=== PATIENT | female | born 1960 | race Caucasian/White ===

== ENCOUNTER 2018-02-23 19:50 | Emergency (ER) | payer BC ==
[~2018-02-23] VITALS: Ht 165.1 cm; Wt 53.0 kg
[~2018-02-23 19:50] MED LIST: ZITH250T PO
[2018-02-23 19:54] VITALS: BP 117/71; PULSE 80; RESP 16; TEMP 97.9; O2SAT 99
[2018-02-23 20:20] VITALS: O2SAT 100
--- NOTE | 2018-02-23 20:28 | PD ---
HPI Chief Complaint: GI Complaint Time Seen by Provider: 20:07 Travel History International Travel<30 days: No Contact w/Intl Traveler<30days: No Traveled to known affect area: No History of Present Illness HPI The patient is a 57 year old female who presents to the [facility] emergency department with a history of reportedly not feeling well for the last 3 months. She reports having loss of appetite with persistent nausea. She denies having any vomiting. She reports that she has lost 20 pounds in the last 3 months. She reports that she has a generalized abdominal pain whenever she eats. She reports that the pain is an aching sensation. She reports that the symptoms seem to be getting worse over time. She reports that she has had a colonoscopy in the past approximately 3 years ago when she was diagnosed with colitis. The patient reports that she does not have a primary care physician currently, however she recently started a new job and has acquired insurance recently and she is in the process of finding a new primary care doctor. The patient has a history of hypothyroid disorder, however she has not been on any medication for this due to her lack of primary care physician and prior lack of insurance. She reports that she takes [id number] iodine pills for her thyroid and biotin. She denies having any diarrhea. She reports that she has a history of constipation and normally moves her bowels every 2-3 days. She denies having any blood in her stool or black or tarry stools. The patient reports that she has had increasing problems with depression and anxiety over the last 3 months. She reports that it became worse when she started her new job. She reports that she has been having difficulty with 2 coworkers. The patient reports a prior history of depression and anxiety and had been on medication in the past for this. The patient reports that over the last 6 weeks she has had urinary frequency with a strong odor to her urine. She reports that she was taking Azo and cranberry juice for this. The symptoms seemed to improve and then got worse again. The patient denies having any known recent fevers, cough or congestion, neck pain, chest pain, shortness of breath, or neurologic symptoms. [facility] Past Medical History Narrative Medical The patient's past medical history is significant for anxiety and depression, history of colitis 3 years ago, prior history of cocaine use for which she has been clean and sober for the last 5 years, history of alcohol abuse for which she has been clean and sober for the last 5 months, and hypothyroid disorder. The patient denies any prior history of cirrhosis or hepatitis. She denies any prior history of IV drug use. Asthma: Yes Depression: Yes Diabetes: No Diminished Hearing: No Headaches: Yes Kidney Stones: Yes Musculoskeletal: Yes Psychiatric: Yes Reproductive: Yes Immunizations Current: No Tetanus Vaccination: Unknown Influenza Vaccination: No ?: Not Menopausal: Yes : 6 Para: 6 Tubal Ligation: Yes Past Surgical History Narrative Surgical The patient's past surgical history is significant for a hysterectomy, left breast biopsy that was benign. Gynecologic Surgery: Yes (HYSTERECTOMY) Hysterectomy: Yes Other Surgery: Yes (BREAST BIOPSY LEFT BREAST) Social History Alcohol Use: No (5 months sober) Tobacco Use: No Substance Use: No (5 years sober) Allergies-Medications (Allergen,Severity, Reaction): Coded Allergies: No Known Allergies (Verified Allergy, Unknown, 02/23/18) Reported Meds & Prescriptions Reported Meds & Active Scripts Active Zithromax Z-Alexis (Azithromycin) 250 Mg Tab 250 Mg PO DIRECTED 500 MG (2 TABLETS) PO ON DAY 1, THEN 250 MG (1 TABLET) PO ON DAYS 2 TO 5. Review of Systems Except as stated in HPI: all other systems reviewed are Neg General / Constitutional: No: Fever Eyes: No: Visual changes HENT: No: Headaches, Congestion, Neck Stiffness, Neck Pain Cardiovascular: No: Chest Pain or Discomfort Respiratory: No: Cough, Shortness of Breath Gastrointestinal: Positive: Nausea, Abdominal Pain, Constipation, Loss of Appetite, No: Vomiting, Diarrhea, Hematochezia, Changes in Bowel Habits, Indigestion Genitourinary: No: Dysuria Musculoskeletal: No: Pain Skin: No Rash Neurologic: Positive: Weakness (Generalized weakness), No: Focal Abnormalities , Change in Mentation, Slurred Speech, Sensory Disturbance Psychiatric: Positive: Anxiety, Depression, Mood Disorder, No: Suicidal Ideations, Homicidal Ideation Endocrine: No: Polydipsia Hematologic/Lymphatic: No: Easy Bruising Physical Exam Narrative General: The patient is a well-developed well-nourished female in no acute distress. Head and Neck exam: Head is normocephalic atraumatic. Eyes: EOMI, pupils are equal round and reactive to light. Nose: Midline septum with pink mucous membranes Mouth: Dentition unremarkable. Moist mucus membranes. Posterior oropharynx is not erythematous. No tonsillar hypertrophy. Uvula midline. Airway patent. Neck: No palpable lymphadenopathy. No nuchal rigidity. No thyromegaly. Cardiovascular: Regular rate and rhythm without murmurs, gallops, or rubs. No pulse deficit to the extremities on simultaneous auscultation and palpation of her radial artery. Lungs: Clear to auscultation bilaterally. No wheezes, rhonchi, or rales. Abdomen: Soft, with tenderness on palpation of the right upper quadrant of the abdomen, no other tenderness on palpation of the other quadrants of the abdomen. Normal bowel sounds are audible. No tenderness on palpation of McBurney's point. Negative Colvin sign. No guarding, rebound, or rigidity. Extremities: No clubbing, cyanosis, or edema. 2+ pulses in all 4 extremities. No calf tenderness on palpation. Back: No spinous process tenderness to palpation. Right-sided CVA tenderness is noted on palpation peer Neurologic Exam: Grossly nonfocal. Skin Exam: No rash noted. Intact skin that is warm and dry. Data Data Last Documented VS Vital Signs Date Time Temp Pulse Resp B/P (MAP) Pulse Ox O2 Delivery O2 Flow Rate FiO2 02/23/18 22:19 75 16 135/75 (95) 98 Room Air 02/23/18 19:54 97.9 Orders Orders Electrocardiogram (02/23/18 20:12) Complete Blood Count With Diff (02/23/18 20:12) Comprehensive Metabolic Panel (02/23/18 20:12) C-Reactive Protein (Crp) (02/23/18 20:12) Lipase (02/23/18 20:12) Urinalysis - C+S If Indicated (02/23/18 20:12) Magnesium (Mg) (02/23/18 20:12) Thyroid Stimulating Hormone (02/23/18 20:12) Iv Access Insert/Monitor (02/23/18 20:12) Ecg Monitoring (02/23/18 20:12) Oximetry (02/23/18 20:12) Sodium Chlorid 0.9% 500 Ml Inj (Ns 500 M (02/23/18 20:45) Ondansetron Odt (Zofran Odt) (02/23/18 20:45) Urine Culture (02/23/18 20:15) Ceftriaxone Inj (Rocephin Inj) (02/23/18 21:00) Ct Abd/Pel W Iv Contrast(Rout) (02/23/18 20:47) Iohexol 350 Inj (Omnipaque 350 Inj) (02/23/18 21:20) Labs Laboratory Tests Test 02/23/18 20:15 White Blood Count 9.4 TH/MM3 Red Blood Count 4.12 MIL/MM3 Hemoglobin 13.5 GM/DL Hematocrit 40.0 % Mean Corpuscular Volume 97.1 FL Mean Corpuscular Hemoglobin 32.9 PG Mean Corpuscular Hemoglobin Concent 33.8 % Red Cell Distribution Width 14.1 % Platelet Count 299 TH/MM3 Mean Platelet Volume 8.1 FL Neutrophils (%) (Auto) 72.2 % Lymphocytes (%) (Auto) 15.6 % Monocytes (%) (Auto) 9.6 % Eosinophils (%) (Auto) 2.1 % Basophils (%) (Auto) 0.5 % Neutrophils # (Auto) 6.8 TH/MM3 Lymphocytes # (Auto) 1.5 TH/MM3 Monocytes # (Auto) 0.9 TH/MM3 Eosinophils # (Auto) 0.2 TH/MM3 Basophils # (Auto) 0.0 TH/MM3 CBC Comment DIFF FINAL Differential Comment Urine Color LIGHT-RED Urine Turbidity CLOUDY Urine pH 6.0 Urine Specific [place] 1.030 Urine Protein 300 mg/dL Urine Glucose (UA) NEG mg/dL Urine Ketones 10 mg/dL Urine Occult Blood LARGE Urine Nitrite POS Urine Bilirubin NEG Urine Urobilinogen 2.0 MG/DL Urine Leukocyte Esterase LARGE Urine RBC /hpf Urine WBC /hpf Urine Squamous Epithelial Cells 3 /hpf Urine Bacteria MOD /hpf Urine Hyaline Casts 7 /lpf Urine Mucus MANY /lpf Microscopic Urinalysis Comment CULTURE INDICATED Blood Urea Nitrogen 15 MG/DL Creatinine 0.84 MG/DL Random Glucose 91 MG/DL Total Protein 7.9 GM/DL Albumin 4.2 GM/DL Calcium Level 9.4 MG/DL Magnesium Level 2.2 MG/DL Alkaline Phosphatase 73 U/L Aspartate Amino Transf (AST/SGOT) 27 U/L Alanine Aminotransferase (ALT/SGPT) 26 U/L Total Bilirubin 0.8 MG/DL Sodium Level 141 MEQ/L Potassium Level 3.8 MEQ/L Chloride Level 105 MEQ/L Carbon Dioxide Level 26.4 MEQ/L Anion Gap 10 MEQ/L Estimat Glomerular Filtration Rate 70 ML/MIN C-Reactive Protein 9.30 MG/DL Lipase 69 U/L Thyroid Stimulating Hormone 3rd Gen 5.820 uIU/ML MDM Medical Decision Making Medical Screen Exam Complete: Yes Emergency Medical Condition: Yes Medical Record Reviewed: Yes Differential Diagnosis Pyelonephritis, versus endocrine abnormalities such as hyperthyroid disorder, versus depression with loss of appetite, versus pancreatitis, versus hepatitis, versus biliary colic Narrative Course During the course of the patient's emergency department visit, the patient's history, examination, and differential diagnosis were reviewed with the patient. The patient was placed on a cafeteria monitor with oximetry and frequent blood pressure monitoring. The patient had IV access obtained and blood work sent for analysis. The patient was offered a psychiatric screen due to her reported increased depression and anxiety, however the patient reports that at this time she prefers to follow-up as an outpatient regarding this and focus on her medical concerns. The patient had an EKG done on arrival that shows a sinus rhythm heart rate of 66, QRS duration 90 ms, QTC [address] segment elevation is noted, T waves are inverted in V1, aVL. The patient was initially provided normal saline at 500 mL bolus 1, Zofran ODT. The patient's laboratory studies were reviewed and remarkable for 02/23/18 20:15 Total Protein 7.9, Albumin 4.2, Calcium Level 9.4, Magnesium Level 2.2, Alkaline Phosphatase 73, Aspartate Amino Transf (AST/SGOT) 27, Alanine Aminotransferase (ALT/SGPT) 26, Total Bilirubin 0.8, C-reactive protein is elevated at 9.30, lipase is 69, TSH 5.82, therefore elevated consistent with her history of hypothyroid disorder, urinalysis shows evidence of infection with 300 protein 10 ketones large occult blood positive nitrite large leukocyte esterase innumerable RBCs and WBCs, moderate bacteria, many mucus, culture indicated. The patient was given Rocephin 1 g IV. Radiology studies were reviewed and remarkable for Last Impressions Abdomen/Pelvis CT 02/23/182046 Signed Impressions: Service Date/Time: Friday, February 23, 2018 21:13 - CONCLUSION: 1. No acute inflammatory process. 2. Diverticulosis without diverticulitis. Martin Olguin MD CT scan showed no evidence of calcified gallstones or gallbladder inflammation. The patient's evaluation is consistent with a pyelonephritis without any vomiting. The patient is stable for discharge on oral antibiotic. The patient will be given a prescription for nausea medication and Bactrim. Regarding the patient's hypothyroid disorder and weight loss. I did recommend that she follow -up with a primary care physician within the next 2-3 days. She does not have a primary care physician currently she is given information regarding following up with the [facility]. She is instructed that she will need to start on an oral thyroid supplement under the guidance of her new primary care physician. We did have a lengthy discussion regarding the patient's unintentional weight loss. It began after she started a new job and has had problems with increasing depression. She plans to follow-up with the primary care physician regarding this. If the symptoms continue after her depression has been better managed, we discussed that she would need additional testing done such as a colonoscopy and further workup. The patient is resting comfortably and feels better, is alert and in no distress. The patient's results and examination findings were discussed with the patient. The repeat examination is unremarkable and benign. The history, exam, diagnostic testing, and current condition do not suggest any significant pathology to warrant further testing, continued ED treatment, admission, or surgical evaluation at this point. The vital signs have been stable. The patient does not have uncontrollable pain, intractable vomiting, or other significant symptoms. The patient's condition is stable and appropriate for discharge. The patient will pursue further outpatient evaluation with a primary care physician or other designated or consulting physician as indicated in the discharge instructions. The patient expressed understanding and was agreeable with this plan. Diagnosis Primary Impression: Pyelonephritis Additional Impressions: Hypothyroidism Qualified Codes: E03.9 - Hypothyroidism, unspecified Weight loss, unintentional Patient Instructions: General Instructions, Hypothyroidism (ED), Kidney Infection (ED) Additional Instructions: Follow-up with the primary care physician regarding your hypothyroid disorder as you will need to he placed on a thyroid supplement. Med/Other Pt SpecificInfo: Prescription(s) given Scripts Sulfamethoxazole-Trimethoprim (Bactrim DS) 800-160 Mg Tab 1 TAB PO BID for Infection, #20 TAB 0 Refills Prov: Omayra Morgan MD 02/23/18 Ondansetron Odt (Zofran Odt) 4 Mg Tab 4 MG SL Q6HR Y for Nausea/Vomiting, #7 TAB 0 Refills Prov: Omayra Morgan MD 02/23/18 Disposition: 01 DISCHARGE HOME Condition: Stable Omayra Morgan MD February 23, 2018 20:28
[2018-02-23 20:33] VITALS: BP 138/63; PULSE 73; RESP 16; O2SAT 100
[2018-02-23 20:35] LABS: AUTOMATED NEUTROPHIL # 6.8 TH/MM3 (1.8-7.7); BASOPHIL % 0.5 % (0.0-2.0); EOSINOPHIL # 0.2 TH/MM3 (0-0.4); EOSINOPHIL % 2.1 % (0.0-4.0); HEMOGLOBIN 13.5 GM/DL (11.6-15.3); LYMPH % 15.6 % (9.0-44.0); LYMPHOCYTE # 1.5 TH/MM3 (1.0-4.8); MEAN CELL VOLUME 97.1 FL (80.0-100.0); MEAN CORPUSCULAR HEMOGLOBIN 32.9 PG (27.0-34.0); MEAN CORPUSCULAR HGB CONC 33.8 % (32.0-36.0); MEAN PLATELET VOLUME 8.1 FL (7.0-11.0); MONO % 9.6 % (0.0-8.0); MONOCYTE # 0.9 TH/MM3 (0-0.9); NEUT % 72.2 % (16.0-70.0); PLATELET COUNT 299 TH/MM3 (150-450); RED BLOOD COUNT 4.12 MIL/MM3 (4.00-5.30); RED CELL DISTRIBUTION WIDTH 14.1 % (11.6-17.2); WHITE BLOOD COUNT 9.4 TH/MM3 (4.0-11.0)
[2018-02-23 20:43] LABS: BACTERIA, URINE MOD /hpf; BILIRUBIN, URINE NEG (NEG); BLOOD, URINE LARGE (NEG); GLUCOSE,URINE NEG (NEG); HYALINE CAST, URINE 7 /lpf (RARE); KETONE, URINE 10 mg/dL (NEG); MUCUS URINE MANY /lpf (OCC); NITRITE,URINE POS (NEG); SQUAMOUS EPITHELIAL CELL URINE 3 /hpf (0-5); URINE LEUKOCYTE ESTERASE LARGE (NEG)
[2018-02-23 20:44] LABS: URINE COLOR LIGHT-RED (YELLW/STRAW)
[2018-02-23] MEDS ORDERED: ONDANSETRON ODT 4 MG TAB PO ONE (20:45)
[2018-02-23] MEDS ORDERED: SODIUM CHLORID 0.9% 500 ML INJ 500 ML IV ONE (20:45)
[2018-02-23 20:53] LABS: ALT (GPT) 26 U/L (10-53)
[2018-02-23 20:55] LABS: ALBUMIN 4.2 GM/DL (3.4-5.0); AST (GOT) 27 U/L (15-37); BICARBONATE 26.4 MEQ/L (21.0-32.0); BLOOD UREA NITROGEN 15 MG/DL (7-18); CALCIUM 9.4 MG/DL (8.5-10.1); CHLORIDE 105 MEQ/L (98-107); CREATININE 0.84 MG/DL (0.50-1.00); GLOMERULAR FILTRATION RATE 70 ML/MIN (>89); GLUCOSE,RANDOM 91 MG/DL (74-106); MAGNESIUM 2.2 MG/DL (1.5-2.5); SODIUM (NA) 141 MEQ/L (136-145)
[2018-02-23] MEDS ORDERED: cefTRIAXone INJ 1,000 MG in SODIUM CHLORIDE 0.9% INJ 100 ML IV ONE (21:00)
[2018-02-23 21:02] LABS: ALKALINE PHOSPHATASE 73 U/L (45-117); TOTAL BILIRUBIN ADULT 0.8 MG/DL (0.2-1.0); TOTAL PROTEIN 7.9 GM/DL (6.4-8.2)
[2018-02-23] MEDS ORDERED: IOHEXOL 350 MG/ML 10 ML VIAL (for RAD DIAG) IVCONTRAST ONE (21:20)
--- NOTE | 2018-02-23 21:32 | RADRPT ---
EXAM DATE/TIME: 02/23/2018 21:13 [facility] COMPARISON: No previous studies available for comparison. INDICATIONS : Abdominal pain and significant weight loss X 3 months. IV CONTRAST: 96 cc Omnipaque 350 (iohexol) IV ORAL CONTRAST: No oral contrast ingested. RADIATION DOSE: 6.64 CTDIvol (mGy) MEDICAL HISTORY : None SURGICAL HISTORY : None. ENCOUNTER: Initial ACUITY: 1 day PAIN SCALE: 7/10 LOCATION: abdomen TECHNIQUE: Volumetric scanning of the abdomen and pelvis was performed. Using automated exposure control and ad justment of the mA and/or kV according to patient size, radiation dose was kept as low as reasonably achievable to obtain optimal diagnostic quality images. DICOM format image data is available electro nically for review and comparison. FINDINGS: LOWER LUNGS: The visualized lower lungs are clear. LIVER: Homogeneous density without lesion. There is no dilation of the biliary tree. No calcified gallston es. SPLEEN: Normal size without lesion. PANCREAS: Within normal limits. KIDNEYS: Normal in size and shape. There is no mass, stone or hydronephrosis. ADRENAL GLANDS: Within normal limits. VASCULAR: There is no aortic aneurysm. BOWEL/MESENTERY: Diverticulosis of the colon without diverticulitis. Normal appendix.. There is no free intraperitone al air or fluid. ABDOMINAL WALL: Within normal limits. RETROPERITONEUM: There is no lymphadenopathy. BLADDER: No wall thickening or mass. REPRODUCTIVE: Within normal limits. INGUINAL: There is no lymphadenopathy or hernia. MUSCULOSKELETAL: Scoliosis and degenerative changes. Bone island right pelvis. CONCLUSION: 1. No acute inflammatory process. 2. Diverticulosis without diverticulitis. Martin Olguin MD on February 23, 2018 at 21:24 Board Certified Radiologist. This report was verified electronically.
[2018-02-23 22:19] VITALS: BP 135/75; PULSE 75; RESP 16; O2SAT 98
[2018-02-23] MEDS ORDERED: BACT800T5 PO (22:33)
[2018-02-23] MEDS ORDERED: ZOFR4TAB3 SL (22:33)
--- NOTE | 2018-02-24 18:41 | EKG ---
Date Performed: 02/23/2018 Time Performed: 20:30:44 PTAGE: 57 years EKG: Sinus rhythm NORMAL ECG Since the PREVIOUS TRACING , no significant change noted PREVIOUS TRACIN08/01/1998 11.07 DOCTOR: Jone Carreon Interpretating Date/Time 02/24/2018 18:41:26
== END 2018-02-23 23:14 | disposition home or self-care (01) ==
LOC: NEPE 19:50
DX: N12 Tubulo-interstitial nephritis, not specified as acute or chronic (principal); E03.9 Hypothyroidism, unspecified; R63.4 Abnormal weight loss; B96.20 Unspecified Escherichia coli [E. coli] as the cause of diseases classified elsewhere; R11.0 Nausea; F32.9 Major depressive disorder, single episode, unspecified; F41.9 Anxiety disorder, unspecified; J45.909 Unspecified asthma, uncomplicated; Z87.442 Personal history of urinary calculi
CPT/HCPCS: 74177; 80053; 81001; 83690; 83735; 84443; 85025; 86140; 87077; 87086; 87186; 93005; 96365; 99285; J0696; J7040; Q9967